=== PATIENT | male | born 1990 | race Hispanic/Latino ===

== ENCOUNTER 2019-11-27 09:19 | Emergency (ER) | payer BC ==
[2019-11-27 10:06] LABS: Absolute Lymphocytes (CBC) 0.6 K/uL (0.7-4.9); Basophils % 0.3 % (0-1.3); Hematocrit 47.9 % (39.6-49.0); Lymphocytes % 6.2 % (15.3-44.8); MPV 8.5 fL (7.6-11.3); RBC Red Blood Cell Count 5.39 M/uL (4.33-5.43)
[2019-11-27 10:28] LABS: Albumin 3.8 g/dL (3.4-5.0); Bilirubin Direct 0.1 mg/dL (0-0.2); Bilirubin Total 0.4 mg/dL (0.2-1.0); Potassium 3.8 mmol/L (3.5-5.1); Protein, Total 7.7 g/dL (6.4-8.2)
--- NOTE | 2019-11-27 10:36 | EDPHYS ---
Physician Documentation [facility] Name: Walker Lopez Age: 29 yrs Sex: Male : 1990 Arrival Date: 11/27/2019 Time: 09:25 Bed 15 Private MD: ED Physician Prakash Pena HPI: 11/26 10:32 This 29 yrs old Male presents to ER via Ambulatory with complaints of jr8 Abdominal Pain. 10:32 The patient presents with abdominal pain in the upper abdomen. Onset: The jr8 symptoms/episode began/occurred acutely, 2 day(s) ago. The symptoms do not radiate. Associated signs and symptoms: Pertinent positives: diarrhea. The symptoms are described as crampy. The symptoms are described as sharp. Modifying factors: The symptoms are alleviated by nothing, the symptoms are aggravated by food. Severity of pain: At its worst the pain was mild in the emergency department the pain is unchanged. The patient has not experienced similar symptoms in the past. The patient has not recently seen a physician. Patient stated that they just got back from [employer] [place]. Started to have diarrhea for past three days that is not letting up. Mild upper abdominal pain that comes and goes. Denies fevers or vomiting . Historical: - Allergies: 09:37 No Known Allergies; hb - Home Meds: 09:37 None [Active]; hb - PMHx: 09:37 None; hb - PSHx: 09:37 None; hb - Immunization history:: Adult Immunizations up to date. - Social history:: Smoking status: Patient denies any tobacco usage or history of. ROS: 10:32 Eyes: Negative for injury, pain, redness, and discharge, ENT: Negative for injury, jr8 pain, and discharge, Neck: Negative for injury, pain, and swelling, Cardiovascular: Negative for chest pain, palpitations, and edema, Respiratory: Negative for shortness of breath, cough, wheezing, and pleuritic chest pain, Back: Negative for injury and pain, MS/Extremity: Negative for injury and deformity, Skin: Negative for injury, rash, and discoloration, Neuro: Negative for headache, weakness, numbness, tingling, and seizure. 10:32 Abdomen/GI: Positive for abdominal pain, diarrhea, Negative for nausea and vomiting, abdominal distension, anorexia, dysphagia, hematemesis, black/tarry stool, rectal pain, rectal bleeding, bowel incontinence, flatulence. Exam: 10:32 Eyes: Pupils equal round and reactive to light, extra-ocular motions intact. Lids and jr8 lashes normal. Conjunctiva and sclera are non-icteric and not injected. Cornea within normal limits. Periorbital areas with no swelling, redness, or edema. ENT: Nares patent. No nasal discharge, no septal abnormalities noted. Tympanic membranes are normal and external auditory canals are clear. Oropharynx with no redness, swelling, or masses, exudates, or evidence of obstruction, uvula midline. Mucous membranes moist. Cardiovascular: Regular rate and rhythm with a normal S1 and S2. No gallops, murmurs, or rubs. Normal PMI, no JVD. No pulse deficits. Respiratory: Lungs have equal breath sounds bilaterally, clear to auscultation and percussion. No rales, rhonchi or wheezes noted. No increased work of breathing, no retractions or nasal flaring. Abdomen/GI: Soft, non-tender, with normal bowel sounds. No distension or tympany. No guarding or rebound. No evidence of tenderness throughout. Back: No spinal tenderness. No costovertebral tenderness. Full range of motion. Skin: Warm, dry with normal turgor. Normal color with no rashes, no lesions, and no evidence of cellulitis. MS/ Extremity: Pulses equal, no cyanosis. Neurovascular intact. Full, normal range of motion. Neuro: Awake and alert, GCS 15, oriented to person, place, time, and situation. Cranial nerves II-XII grossly intact. Motor strength 5/5 in all extremities. Sensory grossly intact. Cerebellar exam normal. Normal gait. Vital Signs: 09:35 BP 133 / 90; Pulse 76; Resp 16; Temp 98.2; Pulse Ox 98% ; Weight 106.59 kg; Height 5 hb ft. 10 in. (177.80 cm); Pain 0/10; 09:35 Body Mass Index 33.72 (106.59 kg, 177.80 cm) hb MDM: 09:38 Patient medically screened. jr8 10:32 Data reviewed: vital signs, nurses notes, lab test result(s), and as a result, I will jr8 discharge patient. Data interpreted: Pulse oximetry: on room air is 98 %. Interpretation: normal. Counseling: I had a detailed discussion with the patient and/or guardian regarding: the historical points, exam findings, and any diagnostic results supporting the discharge/admit diagnosis, lab results, the need for outpatient follow up, a family practitioner, to return to the emergency department if symptoms worsen or persist or if there are any questions or concerns that arise at home. ED course: Patients abdomen is soft and benign. No tenderness upon palpation. No VS abnormality. Labs without acute findings. Most likely infectious diarrhea. Will treat as such. If worse to come back. Patient good with this plan. 11/26 08:38 Order name: Basic Metabolic Panel; Complete Time: 11/26:38 Order name: CBC with Diff; Complete Time: 11/26:38 Order name: Hepatic Function; Complete Time: 11/26:38 Order name: Lipase; Complete Time: 11/26:38 Order name: IV Saline Lock; Complete Time: 11/26:38 Order name: Labs collected and sent; Complete Time: : Administered Medications: No medications were administered Disposition: 13:08 Co-signature as Attending Physician, Prakash Pena MD I agree with the assessment and rabia plan of care. Disposition: 11/27/19 10:35 Discharged to Home. Impression: Diarrhea, unspecified. - Condition is Stable. - Discharge Instructions: Food Choices to Help Relieve Diarrhea, Adult, Diarrhea, Adult. - Prescriptions for Bentyl 20 mg Oral Tablet - take 1 tablet by ORAL route every 6 hours As needed; 20 tablet. Cipro 500 mg Oral Tablet - take 1 tablet by ORAL route every 12 hours for 10 days; 20 tablet. Flagyl 500 mg Oral Tablet - take 1 tablet by ORAL route every 6 hours for 10 days; 40 tablet. Zofran 4 mg Oral Tablet - take 1 tablet by ORAL route every 12 hours As needed; 20 tablet. - Medication Reconciliation Form, Thank You Letter, Antibiotic Education, Prescription Opioid Use form. - Follow up: Private Physician; When: 5 - 6 days; Reason: Recheck today's complaints, Continuance of care, Re-evaluation by your physician. - Problem is new. - Symptoms have improved. Signatures: Dispatcher [employer] Prakash Plata MD MD cha Williams, Irene, RN RN iw Dallin Herrmann PA PA jr8 Shantell Noonan, ANGEL RN Corrections: (The following items were deleted from the chart) 10:46 10:35 11/27/2019 10:35 Discharged to Home. Impression: Diarrhea, unspecified. Condition iw is Stable. Forms are Medication Reconciliation Form, Thank You Letter, Antibiotic Education, Prescription Opioid Use. Follow up: Private Physician; When: 5 - 6 days; Reason: Recheck today's complaints, Continuance of care, Re-evaluation by your physician. Problem is new. Symptoms have improved. jr8
--- NOTE | 2019-11-27 10:36 | ER ---
Nurse's Notes [facility] Name: Walker Lopez Age: 29 yrs Sex: Male : 1990 Arrival Date: 11/27/2019 Time: 09:25 Bed 15 Private MD: Diagnosis: Diarrhea, unspecified Presentation: 11/26 09:35 Chief complaint: Diffuse intermittent abdominal pain, nausea, and diarrhea x 3 days. hb Coronavirus screen: Proceed with normal triage. Ebola Screen: No symptoms or risks identified at this time. Initial Sepsis Screen: Does the patient meet any 2 criteria? No. Patient's initial sepsis screen is negative. Does the patient have a suspected source of infection? No. Patient's initial sepsis screen is negative. Risk Assessment: Do you want to hurt yourself or someone else? Patient reports no desire to harm self or others. Onset of symptoms was November 24, 2019. 09:35 Method Of Arrival: Ambulatory hb 09:35 Acuity: SHAKEEL 3 hb Historical: - Allergies: 09:37 No Known Allergies; hb - Home Meds: 09:37 None [Active]; hb - PMHx: 09:37 None; hb - PSHx: 09:37 None; hb - Immunization history:: Adult Immunizations up to date. - Social history:: Smoking status: Patient denies any tobacco usage or history of. Screenin:31 Abuse screen: Denies threats or abuse. Denies injuries from another. Nutritional iw screening: No deficits noted. Tuberculosis screening: No symptoms or risk factors identified. Fall Risk IV access (20 points). Assessment: 10:30 General: Appears in no apparent distress. Behavior is calm, cooperative. Pain: iw Complains of pain in right upper quadrant and left upper quadrant Pain radiates to epigastric area. Neuro: Level of Consciousness is awake, alert, obeys commands, Oriented to person, place, time, situation, Moves all extremities. Full function. Cardiovascular: Patient's skin is warm and dry. Respiratory: Respiratory effort is even, unlabored, Respiratory pattern is regular, symmetrical. GI: Abdomen is non-distended, Bowel sounds present X 4 quads. Abd is soft and non tender X 4 quads. Reports upper abdominal pain. Derm: Skin is intact, is healthy with good turgor. Musculoskeletal: Range of motion: intact in all extremities. Vital Signs: 09:35 BP 133 / 90; Pulse 76; Resp 16; Temp 98.2; Pulse Ox 98% ; Weight 106.59 kg; Height 5 hb ft. 10 in. (177.80 cm); Pain 0/10; 09:35 Body Mass Index 33.72 (106.59 kg, 177.80 cm) hb ED Course: 09:25 Patient arrived in ED. mr 09:26 Dallin Herrmann PA is PHCP. jr8 09:26 Prakash Pena MD is Attending Physician. jr8 09:36 Triage completed. hb 09:38 Araceli Evans, RN is Primary Nurse. iw 09:38 Arm band placed on. hb 09:38 Patient has correct armband on for positive identification. iw 10:03 Initial lab(s) drawn, by me, sent to lab. Inserted saline lock: 20 gauge in right iw antecubital area, using aseptic technique. Blood collected. 10:45 No provider procedures requiring assistance completed. IV discontinued, intact, iw bleeding controlled, No redness/swelling at site. Pressure dressing applied. Administered Medications: No medications were administered Outcome: 10:35 Discharge ordered by . jrSam 10:45 Discharged to home ambulatory. iw 10:45 Condition: good 10:45 Discharge instructions given to patient, Instructed on discharge instructions, follow up and referral plans. Demonstrated understanding of instructions, follow-up care, medications, Prescriptions given X 4. 10:46 Patient left the ED. iw Signatures: Lina James mr Araceli Evans, RN ANGEL Dallin Herrmann PA PA jr8 Shantell Noonan RN RN
[2019-11-27 10:52] VITALS: BP 133/90; TEMP 98.2; O2SAT 98
== END 2019-11-27 10:46 | disposition home or self-care (01) ==
LOC: ER 09:19
DX: R19.7 Diarrhea, unspecified (principal)
CPT/HCPCS: 36415; 80048; 80076; 83690; 85025; 99283